=== PATIENT | female | born 1965 | race Caucasian/White ===

== ENCOUNTER → 2016-07-24 17:10 | Outpatient (CLI) | payer OTHER | END | disposition home or self-care (01) | LOC: D.MAMMO 16:00 | DX: Z12.31 Encounter for screening mammogram for malignant neoplasm of breast (principal) ==

== ENCOUNTER → 2016-09-12 08:16 | Outpatient (CLI) | payer OTHER | END | disposition home or self-care (01) | LOC: D.RT 09-10 10:00 → D.RAD 09-10 11:00 → D.RT 08:16 | DX: J44.9 Chronic obstructive pulmonary disease, unspecified (principal) ==

== ENCOUNTER 2017-08-19 18:38 | Emergency (ER) | payer OTHER | END 2017-08-19 19:49 | disposition home or self-care (01) | LOC: D.ER 18:38 | DX: M25.561 Pain in right knee (principal); M25.511 Pain in right shoulder; W19.XXXA Unspecified fall, initial encounter; Y93.89 Activity, other specified; Y92.019 Unspecified place in single-family (private) house as the place of occurrence of the external cause; F17.200 Nicotine dependence, unspecified, uncomplicated ==

== ENCOUNTER → 2018-03-01 10:33 | Outpatient (CLI) | payer OTHER | END | disposition home or self-care (01) | LOC: D.RAD 10:33 | DX: J18.9 Pneumonia, unspecified organism (principal) ==

== ENCOUNTER → 2018-03-26 09:35 | Outpatient (CLI) | payer OTHER | END | disposition home or self-care (01) | LOC: D.CT 09:35 | DX: R07.81 Pleurodynia (principal) ==

== ENCOUNTER → 2018-03-29 18:54 | Outpatient (CLI) | payer OTHER | END | disposition home or self-care (01) | LOC: D.MAMMO 11:15 | DX: Z12.31 Encounter for screening mammogram for malignant neoplasm of breast (principal) ==

== ENCOUNTER → 2018-09-03 07:24 | Outpatient (CLI) | payer OTHER | END | disposition home or self-care (01) | LOC: D.RT 07:24 | DX: R91.1 Solitary pulmonary nodule (principal) ==

== ENCOUNTER 2019-06-26 09:14 | Emergency (ER) | payer SELFPAY ==
[~2019-06-26] VITALS: Ht 160 cm; Wt 65.9 kg
[2019-06-26 09:26] VITALS: Ht 160 cm; Wt 65.9 kg
[2019-06-26 16:30] VITALS: BP 112/64
== END 2019-07-03 18:54 | disposition home or self-care (01) ==
LOC: D.ER 09:14
DX: J11.1 Influenza due to unidentified influenza virus with other respiratory manifestations (principal); E07.9 Disorder of thyroid, unspecified; E78.5 Hyperlipidemia, unspecified; J45.909 Unspecified asthma, uncomplicated

== ENCOUNTER → 2020-08-09 08:12 | Outpatient (CLI) | payer OTHER ==
[2019-06-26 09:26] VITALS: BMI 25.7
[~2020-08-09 08:12] MED LIST: IBUPROFEN800 MG PO; PROZAC10 MG; TAMIFLU75 MG PO; ZOCOR10 MG
== END | disposition home or self-care (01) ==
LOC: D.MRI 08:12
PROVIDERS: ATTEND Nurse Practitioner Family
DX: M67.431 Ganglion, right wrist (principal)

== ENCOUNTER 2020-08-25 08:20 | Emergency (ER) | payer OTHER ==
[~2020-08-25] VITALS: Ht 160 cm; Wt 56.8 kg
[2020-08-25 08:29] VITALS: Ht 160 cm; Wt 56.8 kg
[2020-08-25] MEDS ORDERED: LEVOTHYROXINE88 MC1 PO (08:32)
[2020-08-25] MEDS ORDERED: ACETAMINOPHEN500 M1 PO (08:32)
[2020-08-25] MEDS ORDERED: SINGULAIR10 MG PO (08:33)
[2020-08-25] MEDS ORDERED: CHANTIX 1 MG TAB1 MG PO (08:33)
[2020-08-25 09:41] LABS: BASOPHILS 0.3 % (0-2); EOSINOPHILS 0.4 % (0-7); HEMATOCRIT 41.1 % (36.0-48.0); HEMOGLOBIN 13.9 g/dL (12-16); IMMATURE GRANULOCYTES 0.1 % (0-5); LYMPHOCYTE ABS# 0.95 10x3/uL (1.18-3.74); LYMPHOCYTES 12.1 % (15-50); MCH 30.7 pg (26.0-34.0); MCHC 33.8 g/dL (31.0-37.0); MCV 90.7 fL (80.0-100.0); MEAN PLATELET VOLUME 9.1 fL (7.4-10.4); MONOCYTES 7.9 % (2-11); NEUTROPHIL ABS# 6.21 10x3/uL (1.56-6.13); NEUTROPHILS 79.2 % (40-80); PLATELET COUNT 282 10x3/uL (130-400); RBC 4.53 10x6/uL (4.00-5.40); WBC 7.8 10x3/uL (4.8-10.8)
[2020-08-25 09:48] LABS: CALCIUM 9.4 mg/dL (8.5-10.1); CARBON DIOXIDE 25.6 mmol/L (21.0-32.0); CREATININE - SERUM 0.9 mg/dL (0.6-1.3); POTASSIUM - SERUM 3.6 mmol/L (3.5-5.1)
[2020-08-25 09:54] LABS: ALBUMIN 3.7 g/dL (3.4-5.0); BILIRUBIN - TOTAL 0.37 mg/dL (0.2-1.3); PROTEIN - SERUM 6.9 g/dL (6.4-8.2)
[2020-08-25 11:41] VITALS: BP 132/90
== END 2020-08-25 11:42 | disposition home or self-care (01) ==
LOC: D.ER 08:20
PROVIDERS: Family Medicine
DX: G43.909 Migraine, unspecified, not intractable, without status migrainosus (principal); R53.83 Other fatigue; R53.81 Other malaise; T50.B95A Adverse effect of other viral vaccines, initial encounter

== ENCOUNTER 2020-09-14 05:19 | Day surgery (SDC) | payer MEDICAID ==
[~2020-09-14] VITALS: Ht 160 cm; Wt 56.7 kg
[~2020-09-14 05:19] MED LIST changes: +ACETAMINOPHEN500 M1 PO; +CHANTIX 1 MG TAB1 MG PO; +LEVOTHYROXINE88 MC1 PO; +MELATONIN5 MG PO; +MOBIC7.5 MG PO; +SINGULAIR10 MG PO
[2020-09-14 05:36] LABS: BASOPHILS 0.4 % (0-2); HEMATOCRIT 40.4 % (36.0-48.0); HEMOGLOBIN 13.1 g/dL (12-16); IMMATURE GRANULOCYTES 0.1 % (0-5); LYMPHOCYTES 44.4 % (15-50); MCH 29.8 pg (26.0-34.0); MCHC 32.4 g/dL (31.0-37.0); MEAN PLATELET VOLUME 8.8 fL (7.4-10.4); MONOCYTES 9.3 % (2-11); NEUTROPHIL ABS# 3.18 10x3/uL (1.56-6.13); NEUTROPHILS 42.8 % (40-80); RBC 4.39 10x6/uL (4.00-5.40); RDW 12.4 % (11.5-14.5); WBC 7.4 10x3/uL (4.8-10.8)
[2020-09-14 06:09] LABS: ANION GAP 12.4 mmol/L (8-16); CALCIUM 8.8 mg/dL (8.5-10.1); CARBON DIOXIDE 26.3 mmol/L (21.0-32.0); POTASSIUM - SERUM 3.7 mmol/L (3.5-5.1)
[2020-09-14 06:17] VITALS: BP 126/77; Ht 160 cm; Wt 56.7 kg
[2020-09-14 06:17] LABS: PLATELET COUNT 354 10x3/uL (130-400)
--- NOTE | 2020-09-14 11:35 | NUR ---
PATIENT CONTINUES TO BE NAUSEATED AND DRY HEAVE WHEN MOVING. SAT ON SIDE OF BED AND GOT DRESSED.
--- NOTE | 2020-09-14 13:16 | NUR ---
1145 PATIENT IS NOW HOLDING DOWN CLEAR LIQUIDS WITHOUT NAUSEA. DISCHARGE INSTRUCTIONS GIVEN WITH UNDERSTANDING VOICED BY PATIENT.
--- NOTE | 2020-09-17 15:21 | OP ---
PATIENT NAME: KIMBERLI STALLINGS MEDICAL RECORD: [id number] :65 LOCATION:D.OPS ADMISSION DATE: SURGEON: RORY LE DO DATE OF OPERATION: 09/14/2020 PROCEDURE PERFORMED: Excision of ganglion cyst on right wrist and release of the flexor carpi radialis tendon sheath. PREOPERATIVE DIAGNOSIS: Ganglion cyst of volar right wrist. POSTOPERATIVE DIAGNOSIS: Ganglion cyst of volar right wrist. INDICATIONS: Ms. Stallings has been dealing with volar ganglion for quite some time. It got to the point where it was affecting her activities of daily living and wants something done surgically. I have told her it was right near the radial artery and there is a risk for arterial injury, infection, bleeding, damage to nerves and vessels in the area, continued pain and recurrence and she signed the consent. SURGEON: Rory Le DO DESCRIPTION OF PROCEDURE: The patient was taken to operative suite, laid in supine position, given general anesthetic and LMA was placed. The right upper extremity was prepped and draped in sterile fashion. A timeout was performed. Everyone was in agreeance with the correct side, site, patient and procedure. She was given a gram of Ancef preoperatively. I then exsanguinated the right upper extremity with an Esmarch, tourniquet was inflated to 250 mmHg, it was up for 14 minutes. I then made an incision over the flexor carpi radialis tendon. Made careful dissection down to it and excised the ganglion and then opened up the sheath. As the ganglion surrounded the flexor carpi radialis tendon, I opened up the tendon sheath going into the hand as well and relieve the pressure on the tendon. The cyst was all excised. It did not go down to the wrist joint. I then deflated the tourniquet and coagulated any bleeding with a pickup and Bovie. There was no radial artery injury. I then closed the incision with 4-0 Monocryl in inverted interrupted fashion and placed Steri-Strips, Adaptic, 4 x 4, Kerlix and Coban lightly wrapped in the wrist. She was then awakened and taken to recovery in stable condition. BLOOD LOSS: Minimal. COMPLICATIONS: None. TRANSINT:[id number] Voice Confirmation ID: [id number] DOCUMENT ID: [id number] RORY LE DO at 1521 CC: [id number] DICTATION DATE: 09/17/20 1023 TIMBER APPRAISER: 09/17/20 1342 [facility] 09/14/20 [id number] [place] [id number]
== END 2020-09-14 12:30 | disposition home or self-care (01) ==
LOC: D.OPS 05:19
PROVIDERS: Anesthesiology; ATTEND Orthopaedic Surgery
DX: M67.431 Ganglion, right wrist (principal); J45.909 Unspecified asthma, uncomplicated; F17.200 Nicotine dependence, unspecified, uncomplicated; K21.9 Gastro-esophageal reflux disease without esophagitis